=== PATIENT | male | born 1955 | race Caucasian/White ===

== ENCOUNTER 2019-11-25 15:17 | Emergency (ER) | payer BC ==
[~2019-11-25] VITALS: Ht 182.9 cm; Wt 87.1 kg
[~2019-11-25 15:17] MED LIST: MOTRIN IB200 MG PO; PERCOCET 10-651 EACH PO; XANAX
[2019-11-25] MEDS ORDERED: LISINOPRIL2.5 M1 PO (15:33)
[2019-11-25] MEDS ORDERED: OMEPRAZOLE 20 M20 M1 PO (15:34)
[2019-11-25 15:42] LABS: INFLUENZA A ANTIGEN Positive (Negative); INFLUENZA B ANTIGEN Negative (Negative)
[2019-11-25 16:08] LABS: ABSOLUTE BASOPHILS 0.1 thou/uL (0.0-0.2); ABSOLUTE LYMPHOCYTES 0.6 thou/uL (0.8-5.3); ABSOLUTE NEUTROPHILS 4.2 thou/uL (1.6-8.1); HEMATOCRIT 43.7 % (42.0-52.0); HEMOGLOBIN 15.5 gm/dL (14.0-18.0); LYMPHOCYTES 9.7 %; MCH 29.6 pg (26.0-34.0); MCHC 35.4 g/dL (28.0-37.0); MCV 83.8 fL (80.0-100.0); MONOCYTES 17.3 %; MPV 9.4 fl. (7.2-11.1); NUCLEATED RBCS 0 /100WBC; PLATELET COUNT* 188 thou/uL (150-400); RBC 5.22 mil/uL (4.50-6.00); RDW-CV 14.4 % (10.5-14.5); WBC 5.9 thou/uL (4.0-11.0)
[2019-11-25 16:17] LABS: APTT 31.5 Seconds (25.0-31.3); CALCIUM 9.1 mg/dL (8.5-10.1); CREATININE 1.3 mg/dL (0.6-1.3); INR 1.1; POTASSIUM 3.4 mmol/L (3.5-5.1); PROTIME 10.9 Seconds (9.20-11.50)
[2019-11-25 16:31] LABS: ALBUMIN 4.1 g/dL (3.4-5.0); TOTAL BILIRUBIN 0.6 mg/dL (<0.1-1.0); TOTAL PROTEIN 8.1 g/dL (6.4-8.2)
[2019-11-25] MEDS ORDERED: TAMIFLU75 MG PO (16:47)
[2019-11-25] MEDS ORDERED: ZOFRAN4 MG PO (16:47)
[2019-11-25] MEDS ORDERED: VENTOLIN HFA 1818 GM INH (16:59)
[2019-11-25] MEDS ORDERED: MEDROLDOSEPACK PO (16:59)
[2019-11-25] MEDS ORDERED: TESSALON PERLE100 M1 PO (16:59)
[2019-11-25 17:26] VITALS: BP 145/79
--- NOTE | 2019-11-26 12:19 | EKG ---
[place] [address] ELECTROCARDIOGRAM REPORT Name: CORDELL ROCA Room: [facility]#: [id number] Admission: 11/25/19 Attend Phys: Discharge: 11/25/19 Date of : 57 Date of Service: 11/25/19 1605 Report #: [id number] THIS REPORT FOR: //name// [facility] ED Test Date: 2019-11-25 Test Time: 16:05:26 Pat Name: CORDELL ROCA Department: Room: Gender: Drier Tender: : 1955 Requested By: Melina Ibrahim Order Number: [id number] MD: Carlos Connell Measurements Intervals [place] Rate: 90 P: 45 NE: 158 QRS: 4 QRSD: 100 T: 59 QT: 354 QTc: 433 Interpretive Statements Sinus rhythm Compared to ECG 05/21/2009 17:43:46 No significant changes Electronically Signed On 11-26-2019 12:18:30 HOSPITAL CLERK by Carlos Connell [email or web address] <ELECTRONICALLY SIGNED> By: Carlos Connell MD, [facility] 11/26/19 1218 1605 1605 Carlos Connell MD, [facility] /EPI
== END 2019-11-25 17:28 | disposition home or self-care (01) ==
LOC: M.ERS 15:17
PROVIDERS: Family Medicine; Nurse Practitioner Family
DX: J10.1 Influenza due to other identified influenza virus with other respiratory manifestations (principal); E86.0 Dehydration; R74.8 Abnormal levels of other serum enzymes; G47.30 Sleep apnea, unspecified; Z90.2 Acquired absence of lung [part of]; Z91.048 Other nonmedicinal substance allergy status

== ENCOUNTER 2021-10-09 01:14 | Emergency (ER) | payer BC ==
[~2021-10-09] VITALS: Ht 182.9 cm; Wt 90.7 kg
[~2021-10-09 01:14] MED LIST changes: +LISINOPRIL2.5 M1 PO; +MEDROLDOSEPACK PO; +OMEPRAZOLE 20 M20 M1 PO; +TAMIFLU75 MG PO; +TESSALON PERLE100 M1 PO; +VENTOLIN HFA 1818 GM INH; +ZOFRAN4 MG PO
[2021-10-09] MEDS ORDERED: XANAX1 MG PO (01:33)
[2021-10-09 03:03] LABS: HEMATOCRIT 43.5 % (42.0-52.0); HEMOGLOBIN 14.8 gm/dL (14.0-18.0); MCH 28.7 pg (26.0-34.0); MCHC 34.1 g/dL (28.0-37.0); MCV 84.3 fL (80.0-100.0); MPV 8.4 fl. (7.2-11.1); NUCLEATED RBCS 0 /100WBC; PLATELET COUNT* 246 thou/uL (150-400); RBC 5.16 mil/uL (4.50-6.00); RDW-CV 14.2 % (10.5-14.5); WBC 13.9 thou/uL (4.0-11.0)
[2021-10-09 03:10] LABS: CALCIUM 8.7 mg/dL (8.5-10.1); CREATININE 1.2 mg/dL (0.6-1.3); POTASSIUM 4.1 mmol/L (3.5-5.1)
[2021-10-09 04:13] LABS: URINE BILIRUBIN NEGATIVE (Negative); URINE BLOOD TRACE (Negative); URINE CLARITY CLEAR; URINE COLOR YELLOW; URINE GLUCOSE-RANDOM NEGATIVE (Negative); URINE KETONES NEGATIVE (Negative); URINE LEUKOCYTES-REFLEX NEGATIVE (Negative); URINE NITRITE-REFLEX NEGATIVE (Negative); URINE PROTEIN NEGATIVE (Negative); URINE SPECIFIC GRAVITY 1.025 (1.005-1.030); URINE UROBILINOGEN 0.2 E.U./dl (0.2-1.0)
[2021-10-09] MEDS ORDERED: HYDROCODON-ACE1 EAC8 PO (05:38)
[2021-10-09] MEDS ORDERED: CIPROFLOXACIN500 M1 PO (05:38)
[2021-10-09] MEDS ORDERED: METRONIDAZOLE500 M4 PO (05:38)
[2021-10-09 06:27] LABS: ABSOLUTE BASOPHILS 0.1 thou/uL (0.0-0.2); ABSOLUTE LYMPHOCYTES 3.6 thou/uL (0.8-5.3); ABSOLUTE MONOCYTES 1.1 thou/uL (0.0-1.2); PLATELET ESTIMATE ADEQUATE
[2021-10-09 06:30] VITALS: BP 140/74
--- NOTE | 2021-10-09 12:34 | EKG ---
[place] [address] ELECTROCARDIOGRAM REPORT Name: CORDELL ROCA Room: [facility]#: [id number] Admission: 10/09/21 Attend Phys: Discharge: 10/09/21 Date of : 57 Date of Service: 10/09/21 0409 Report #: [id number] THIS REPORT FOR: //name// [facility] ED Test Date: 2021-10-09 Test Time: 04:09:41 Pat Name: CORDELL ROCA Department: Room: Gender: Help Desk Coordinator: : 1955 Requested By: Gretchen Gonzales Order Number: [id number] MD: Fuentes Hall Measurements Intervals [place] Rate: 73 P: 37 ME: 149 QRS: 2 QRSD: 99 T: 38 QT: 374 QTc: 413 Interpretive Statements Sinus rhythm Compared to ECG 11/25/2019 16:05:26 ST (T wave) deviation now present Electronically Signed On 10-09-2021 12:34:29 DOMESTIC TRAVEL CONSULTANT by Fuentes Hall [email or web address] <ELECTRONICALLY SIGNED> By: Fuentes Hall MD, [facility] 10/09/21 1234 0409 0409 Fuentes Hall MD, [facility] /EPI
== END 2021-10-09 06:30 | disposition home or self-care (01) ==
LOC: M.ERS 01:14
PROVIDERS: Emergency Medicine
DX: K57.92 Diverticulitis of intestine, part unspecified, without perforation or abscess without bleeding (principal); R10.30 Lower abdominal pain, unspecified; Z98.890 Other specified postprocedural states; Z79.899 Other long term (current) drug therapy; Z91.048 Other nonmedicinal substance allergy status